=== PATIENT | female | born 1995 | race Caucasian/White ===

== ENCOUNTER 2016-11-13 03:20 | Emergency (ER) | payer OTHER ==
[2016-11-13 03:33] VITALS: BP 129/86
--- NOTE | 2016-11-13 04:41 | ED ---
Emily, DoctorShahnaz, scribed for Pilar Wright MD on 11/13/16 at 0358 . Head Injury - History Of Current Complaint Chief Complaint: EDHeadInjury Stated Complaint: HEAD INJURY/LAC Time Seen by Provider: 11/13/16 03:43 Pain Intensity: 4 - Allergies/Home Medications Allergies/Adverse Reactions: Allergies Allergy/AdvReac Type Severity Reaction Status Date / Time Amoxicillin Allergy Altered Verified 11/13/16 03:34 Mental Status Penicillins [PCN] Allergy Anaphylatic Verified 11/13/16 03:34 Shock Tree Nuts Allergy Anaphylatic Verified 11/13/16 03:34 Shock nuts Allergy Anaphylatic Uncoded 11/13/16 03:34 Shock seeds Allergy Anaphylatic Uncoded 11/13/16 03:34 Shock PMH/Surg Hx/FS Hx/Imm Hx Infectious Disease History: No Infectious Disease History: Denies: Traveled Outside the [place] in Last 30 Days - Social History Alcohol Use: None Substance Use Type: Reports: None Smoking Status (MU): Never Smoked Tobacco Review of Systems Constitutional: Negative Negative: Fever, Chills, Fatigue Eyes: Negative Negative: Photophobia, Blurred Vision, Diplopia ENT: Negative Negative: Epistaxis, Dental Pain, Sore Throat Cardiovascular: Negative Negative: Palpitations, Chest Pain Respiratory: Negative Negative: Shortness Of Breath, Cough Gastrointestinal: Negative Positive: Diarrhea, Nausea. Negative: Abdominal Pain, Vomiting Genitourinary: Negative Negative: no symptoms reported Musculoskeletal: Negative Skin: Negative Positive: Headache Psychological: Normal All Other Systems Reviewed And Are Negative: Yes Physical Exam Vital Signs On Initial Exam: Initial Vitals Temp Pulse Resp BP Pulse Ox 98.9 F 114 18 129/86 100 11/13/16 03:29 11/13/16 03:29 11/13/16 03:29 11/13/16 03:29 11/13/16 03:29 - Theo Coma Scale Coma Scale Total: 15 Diagnostics - Vital Signs Vital Signs Temp Pulse Resp BP Pulse Ox 11/13/16 03:29 98.9 F 114 18 129/86 100 - Laboratory Lab Statement: Any lab studies that have been ordered have been reviewed, and results considered in the medical decision making process. Head Injury Course/Dx Course Of Treatment: 21 yo female who hugged a friend and bumped her head into a piece of furniture, pt did have a little bit of alcohol on board, reassured pt that the mechanism of injury did not warrant a head ct. pt did have a mild headache and so concussion guidelines were given. pt had a 1cm superficial laceration mid forehead that did not require suturing, tetanus was up to date - Diagnoses Provider Diagnoses: Concussion, Superficial laceration of face Discharge - Discharge Plan Condition: Stable Disposition: HOME Patient Education Materials: Concussion (ED), Laceration (ED) The documentation as recorded by the Doctor rodriguez Tahera accurately reflects the service I personally performed and the decisions made by me, Pilar Wright MD.
--- NOTE | 2016-11-16 10:57 | ED ---
Emily, Shahnaz Roth, scribed for Pilar Wright MD on 11/13/16 at 0609 . Progress - Progress Note Progress Note: 21 year old female arrived to [facility] c/o superficial laceration to the head and fear of potential concussion. She reports hitting her head on the corner of a closet door in her apartment, and has had a headache beginning at 02:45 today. Pt was drinking prior to sustaining her injury. She does not report any other symptoms; and she has PMHx of asthma. Dr. Wright explained the risks and symptoms she was experiencing, spoke with pt about desired treatment options. Physical Exam: General: Well appearing, no pain distress Skin: Warm, Skin Color Reflects Adequate Perfusion, Dry. superficial laceration on the forehead. Eyes: EOMI, KVNG ENT: Pharynx normal, TMs normal Neck: Supple, nontender Respiratory: CTA, breath sounds present, no rhonchi, no wheezes, no rales Cardiovascular: RRR, no murmur, no rub, no gallop Abdomen: Soft, nontender, Non-distended, no guarding, no rebound Bowel: Present Musculoskeletal: ELENO, No edema Neuro: Sensory/motor intact, A&Ox3, CN intact 2-12 Psych: Affect/mood appropriate Course/Dx - Course Course Of Treatment: 21 yo female who hugged a friend and bumped her head into a piece of furniture, pt did have a little bit of alcohol on board, reassured pt that the mechanism of injury did not warrant a head ct. pt did have a mild headache and so concussion guidelines were given. pt had a 1cm superficial laceration mid forehead that did not require suturing, tetanus was up to date - Diagnoses Provider Diagnoses: Concussion, Superficial laceration of face The documentation as recorded by the Doctor rodriguez Tahera accurately reflects the service I personally performed and the decisions made by me, Pilar Wright MD.
== END 2016-11-13 04:25 | disposition home or self-care (01) ==
LOC: ED 03:20
DX: S06.0X9A Concussion with loss of consciousness of unspecified duration, initial encounter (principal); S01.81XA Laceration without foreign body of other part of head, initial encounter; X58.XXXA Exposure to other specified factors, initial encounter; Y93.9 Activity, unspecified; Y92.9 Unspecified place or not applicable; R51 Headache; R19.7 Diarrhea, unspecified; R11.0 Nausea
CPT/HCPCS: 99282